=== PATIENT | male | born 1980 | race Two or more races ===

== ENCOUNTER 2022-12-02 13:54 | Emergency (ER) | payer OTHER ==
[2022-12-02 14:08] VITALS: BP 157/98; PULSE 86; RESP 17; TEMP 97.6; BMI 29.2
== END 2022-12-02 15:18 | disposition home or self-care (01) ==
LOC: JER 13:54 → JERFT 13:54
DX: Z48.00 Encounter for change or removal of nonsurgical wound dressing (principal)
CPT/HCPCS: 99281-25

== ENCOUNTER 2022-12-06 14:54 | Emergency (ER) | payer OTHER ==
[2022-12-06 14:59] VITALS: BP 131/76; PULSE 87; RESP 17; TEMP 98.6; BMI 26.5
== END 2022-12-06 16:11 | disposition home or self-care (01) ==
LOC: JERFT 14:54
DX: S81.812D Laceration without foreign body, left lower leg, subsequent encounter (principal); X58.XXXD Exposure to other specified factors, subsequent encounter
CPT/HCPCS: 99282-25

== ENCOUNTER 2022-12-14 14:10 | Emergency (ER) | payer OTHER ==
[2022-12-14 14:14] VITALS: BP 141/91; PULSE 82; RESP 18; TEMP 99; BMI 26.5
== END 2022-12-14 14:36 | disposition home or self-care (01) ==
LOC: JERFT 14:10
DX: Z48.02 Encounter for removal of sutures (principal)
CPT/HCPCS: 99282-25